=== PATIENT | male | born 1990 | race Caucasian/White ===

== ENCOUNTER 2023-01-07 19:00 | Emergency (ER) | payer SELFPAY ==
[~2023-01-07] VITALS: Ht 172.7 cm; Wt 95.5 kg
[2023-01-07 19:19] VITALS: TEMP 98.4
[2023-01-07] MEDS ORDERED: NAPROSYN500 MG PO (22:17)
[2023-01-07 22:41] VITALS: BP 124/100; PULSE 54
== END 2023-01-07 22:41 | disposition home or self-care (01) ==
LOC: COL.ER 19:00
DX: S83.91XA Sprain of unspecified site of right knee, initial encounter (principal); X50.1XXA Overexertion from prolonged static or awkward postures, initial encounter; Y93.02 Activity, running